=== PATIENT | female | born 1985 | race Caucasian/White ===

== ENCOUNTER 2018-01-12 00:06 | Observation (INO) | payer OTHER ==
[2018-01-12] MEDS ORDERED: NS 1,000 ML IV ONE (00:08)
--- NOTE | 2018-01-12 00:17 | EDPHY ---
H & P Time Seen by Provider: 01/12/18 00:20 HPI/ROS: HPI CHIEF COMPLAINT: Vaginal bleeding, HISTORY OF PRESENT ILLNESS: This patient is a 32-year-old female she is otherwise healthy with no significant medical history does not take any daily medications she presents emergency room with vaginal bleeding that suddenly started around 11 30 this evening. She is currently 11 weeks . She denies any abdominal pain chest pain or shortness of breath. Denies trauma. Denies contractions. She has not had ultrasound yet. Past Medical History: Beta thalassemia. Past Surgical History: Denies surgical history Social History: Denies drugs alcohol tobacco products. Family History: Noncontributory ROS REVIEW OF SYSTEMS: A comprehensive 10 point review of systems is otherwise negative aside from elements mentioned in the history of present illness. Exam Constitutional triage nursing summary reviewed, vital signs reviewed, awake/ alert. Eyes normal conjunctivae and sclera, EOMI, PERRLA. HENT normal inspection, atraumatic, moist mucus membranes, no epistaxis, neck supple/ no meningismus, no raccoon eyes. Respiratory clear to auscultation bilaterally, normal breath sounds, no respiratory distress, no wheezing. Cardiovascular rate normal, regular rhythm, no murmur, no edema, distal pulses normal. Gastrointestinal soft, non-tender, no rebound, no guarding, normal bowel sounds, no distension, no pulsatile mass. Genitourinary no CVA tenderness. Musculoskeletal no midline vertebral tenderness, full range of motion, no calf swelling, no tenderness of extremities, no meningismus, good pulses, neurovascularly intact. Skin pink, warm, & dry, no rash, skin atraumatic. Neurologic awake, alert and oriented x 3, AAOx3, moves all 4 extremities equally, motor intact, sensory intact, CN II-XII intact, normal cerebellar, normal vision, normal speech. Psychiatric normal mood/affect. Heme/Lymph/Immune no lymphadenopathy. Differential Diagnosis: Includes but is not limited to in a particular order, miscarriage, ectopic , threatened AB, AVM, fibroid Medical Decision Making: Plan for this patient that is 11 weeks with significant vaginal bleeding will status an IV, IV fluid bolus, check CBC, type and screen, ABO Rh, ultrasound of the pelvis less than 14 weeks and re-evaluate. Re-evaluation: 0128: Ultrasound results are pending. CBC reviewed with an H&H of 9. I did perform a pelvic exam at 1:20 a.m. 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 After removal of these clots she did have significant vaginal bleeding. Patient is blood type O-positive. 0213: After extensive discussion with the patient she would like to be admitted for observation given how much vaginal bleeding she is having. I think this is reasonable. Ultrasound shows a large subchorionic hemorrhage. This patient is currently actively miscarrying. 0214: Spoke with Dr. Ramirez who agrees to admit the patient. Source: Patient Constitutional: Initial Vital Signs Temperature (C) 36.7 C 01/12/18 00:15 Heart Rate 110 H 01/12/18 00:15 Respiratory Rate 18 01/12/18 00:15 Blood Pressure 136/82 H 01/12/18 00:15 O2 Sat (%) 100 01/12/18 00:15 O2 Delivery Mode Room Air Allergies/Adverse Reactions: eye drops Allergy (Uncoded 01/12/18 03:15) Home Medications: Medication Instructions Recorded Dha 1 tab PO DAILY 01/12/18 FOLIC ACID 1 tab PO DAILY 01/12/18 Multivitamin (*) 1 tab PO DAILY 01/12/18 Medical Decision Making - Diagnostics Imaging Results: Imaging Impressions Obstetrics Ultrasound 01/12/18 00:17 Impression: 1. Single viable intrauterine gestation with EGA by ultrasound of 12 weeks and by LMP of 11 weeks is detected above. 2. Estimated date of delivery is 08/03/2018 by LMP and 07/27/2018 by ultrasound. Size consistent with dates. 3. Large subchorionic hemorrhage along the posterior aspect of the gestational sac with some funneling of the upper cervix. The remaining lower 2.8 cm of cervix remains closed. 4. Blood products are also seen within the vagina. The study was performed as an emergency on-call case and discussed by telephone with Dr. Mark Perdomo at 0132 hrs. The final interpretation is concordant with the original communication. - Data Points Laboratory Results: Laboratory Results 01/12/18 00:45 01/12/18 00:45 Medications Given: Acetaminophen (Tylenol) 650 mg PO Q4HRS PRN PRN Reason: Pain, Mild/Fever, Can Take PO Stop: 07/11/18 09:33 Last Admin: 03/19/18 01:26 Dose: 650 mg Diphenoxylate HCl/Atropine (Lomotil) 1 - 2 tab PO Q6 PRN PRN Reason: Diarrhea/Loose Stools Stop: 07/11/18 22:59 Last Admin: 01/12/18 23:25 Dose: 1 tab Lactated Ringer's (Lr) 1,000 mls @ 125 mls/hr IV CONT ELIZABETH Stop: 07/11/18 05:59 Last Admin: 01/12/18 23:25 Dose: 1,000 mls Misoprostol (Cytotec) 600 mcg PO Q3 ELIZABETH Stop: 07/11/18 09:44 Last Admin: 01/13/18 01:30 Dose: Not Given Discontinued Medications Acetaminophen (Tylenol) 1,000 mg PO ONCE ONE Stop: 01/12/18 04:16 Last Admin: 01/12/18 04:20 Dose: 1,000 mg Sodium Chloride (Ns) 1,000 mls @ 0 mls/hr IV EDNOW ONE; Wide Open PRN Reason: Protocol Stop: 01/12/18 00:09 Last Admin: 01/12/18 00:51 Dose: 1,000 mls Misoprostol (Cytotec) 1,000 mcg PO ONCE ONE Stop: 01/12/18 04:21 Last Admin: 01/12/18 04:30 Dose: 1,000 mcg Departure - Departure Disposition: [facility] Acute Clinical Impression: Miscarriage Condition: Good
[2018-01-12 01:06] LABS: PLATELET COUNT 216 10^3/uL (150-400)
[2018-01-12] MEDS: LR 1,000 ML IV SCH ×3 (04:00→23:25)
[2018-01-12] MEDS ORDERED: ACETAMINOPHEN 500 MG TAB PO ONE (04:15)
[2018-01-12] MEDS ORDERED: MISOPROSTOL 200 MCG TAB ONE ×2 (04:18→06:56)
[2018-01-12] MEDS ORDERED: MISOPROSTOL 200 MCG TAB PO ONE (04:20)
[2018-01-12 04:23] LABS: PLATELET COUNT 197 10^3/uL (150-400)
--- NOTE | 2018-01-12 06:21 | GHP ---
[f rep st] PREOP HISTORY AND PHYSICAL DATE OF ADMISSION: 01/12/2018 HISTORY OF PRESENT ILLNESS: The patient is a 32-year-old G1 white female who presented to the emerge ncy room due to heavy vaginal bleeding at 12 weeks . The patient reports she has had an unc omplicated other than a small amount of postcoital bleeding at approximately 7 to 8 weeks; however, started having heavy vaginal bleeding approximately 11:30 on the 17. The patient was havi ng minimal discomfort. In the emergency room, an ultrasound was performed that showed of a viable in trauterine ; however, the sac was in the lower uterine segment with evidence of a large subc horionic posterior hemorrhage. There was normal fluid in the sac. The patient was having heavy acti ve bleeding with large clots in the emergency room. Initial hemoglobin and hematocrit were 9.1 and 2 7.2. The patient was hemodynamically stable and it was decided to admit the patient for observation during her miscarriage status due to the anemia. CARE: The patient has had a visit at [facility] approximately 2 weeks ago, at wh ich time they heard normal cardiac activity. She had not yet had an ultrasound with this [facility]. Has not had any laboratory done previous to tonight. PAST MEDICAL HISTORY: Beta thalassemia. PAST SURGICAL HISTORY: Gum graft, at which time she had significantly heavier bleeding than she was told was typical of that procedure. She has also had her wisdom teeth out that did not have any undu e bleeding. ALLERGIES: The patient is allergic to dilating eyedrops causing nausea and emesis and the patient payne d passed out. CURRENT MEDICATIONS: Only vitamins with DHA and [place] 3s. SOCIAL HISTORY: The patient denies smoking, has had no alcohol intake through the . She de nies any IV drug use. The patient does have a supportive partner with her. She is an active female, but has not done any intensely strenuous exercise in the last 1-2 days. REVIEW OF SYSTEMS: A comprehensive review of systems performed and the pertinent positives and negat rupal noted above. The patient reported mild indigestion after dinner tonight that was not unusual, b ut no nausea or vomiting. PAST SHOEMAKING FINISHER HISTORY: The patient reports that her menstrual cycles were monthly, lasting 5-7 days. The patient reports 2-3 days of extremely heavy flow where she is soaking large pads every hour. Only d escribes mild back discomfort with her periods. LABORATORY DATA: Lab tests done since admission reveal the above noted H and H and a repeat CBC show ed mild elevation of the white count up to 11.2 with hemoglobin 7.9 and hematocrit 23.2. Platelets w ere normal. Chemistry panel was performed upon admission and was normal with a creatinine of 0.4. T he patient's blood type is O positive. PHYSICAL EXAM: The patient is seen on labor and delivery and is resting comfortably. She is a well- developed, well-nourished, white female. After the patient had gotten up to the bathroom, she did payne ve a drop in blood pressure to 83/45. Otherwise, the blood pressures have ranged from the 100s to th e 120s over 60s to 70s. Heart rate is between the 80s and 100s. The patient's temperature was 38.8 and after 1 g of Tylenol had come down to 37.8. On exam, the patient's lungs are clear to auscultati on bilaterally. CARDIOVASCULAR: Regular rate and rhythm. Oxygenation is at 100% on room air. The patient has 1 L of oxygen near her, but states it is more for mental reassurance. ABDOMEN: Soft and nontender. Pelvic ultrasound is performed and there was minimal tissue noted up in the uterus. How ever, it appears the gestational sac has moved down into the vaginal area. Vaginal exam was performe d and clots removed vaginally with some tissue. No pole specifically identified. After the ti ssue was removed vaginally, the ultrasound is rechecked and it does appear that there might still be some retained tissue in the uterus. EXTREMITIES: Nontender and no edema. ASSESSMENT: Spontaneous loss with concern for abruption as the process was essentially madyson nless with heavy bleeding. No obvious etiology to explain an abruption. Incomplete at this point with still evidence of a small retained tissue. Blood type O positive. PLAN: The patient is given 1000 mcg of Cytotec to see if this will help her uterus expel the tissue. Due to the history of menorrhagia and heavier bleeding after the gum graft, we will check a von Ganesh lebrand's factor at the next time of a check of H and H in 4 hours. History of beta thalassemia with typical hematocrit between 28 and 32. Anemia at this point, after recent bleeding. /[id number]/MODL
--- NOTE | 2018-01-12 08:01 | SOAPPROG ---
SOAP Progress Note Assessment/Plan: Assessment: incomplete ab s/p loss of 12 wk IUP with concern for RPOCs stable hemodynamically fever after cytotec but don't think pt looks clinically septic anemia beta thal Plan: u/s reveals still evidence of tissue/clot in uterus - no further bld after cytotec 3+ hrs ago recheck CBC now and check VWF 01/12/18 07:58 01/12/18 08:00 Subjective: pt doing fine. has been up to bathroom and feels weak but not dizzy anymore. bld is minimal. urinating fine. felt warm with fever after cytotec Objective: Vital Signs Temp Pulse Resp BP Pulse Ox 38.8 C H 85 16 112/61 94 01/12/18 07:40 01/12/18 07:40 01/12/18 07:40 01/12/18 07:40 01/12/18 07:40 Laboratory Results 01/12/18 03:58 01/11/18 01/12/18 01/13/18 05:59 05:59 05:59 Intake Total 1200 Output Total 310 Balance 890 ultrasound - evidence of RPOCs/ clot in uterus Physical Exam - Physical Exam Abdomen: non-tender, soft Pelvic Exam: vaginal bleeding (light), other (now more tissue noted in vagina, palpable tissue/clot noted at inner os.) ICD10 Worksheet Patient Problems: Problems Problem Status Onset Miscarriage Acute
[2018-01-12 08:34] LABS: PLATELET COUNT 188 10^3/uL (150-400)
--- NOTE | 2018-01-12 09:28 | SOAPPROG ---
SOAP Progress Note Assessment/Plan: Assessment:32 G1 with a 12 week incomplete SAB - hemodynamically stable now, though had significant blood loss Prefers nonsurgical management at this time. Still appears to have a 3 cm thickness in the endometrial cavity of clot vs tissue Febrile but no focal symptoms, nontoxic, likely side effect of misoprostil. Anemia - stable and not clinically symptomatic any more Plan: Misoprostil 600mcg sublingual (most current mgmt recommendations per [email or web address]) q 3 hours Will continue to observe here in L&d Tylenol 650 q 4 hr Will reassess this afternoon - if bleeding becomes significant, will proceed with D&C If unable to pass remaining tissue, will also consider D&C Will repeat H/H if clinically significant bleeding. Pt and male partner agreeable with mutual plan of care. Iona Lauren MD, [facility] 01/12/18 09:23 01/12/18 09:31 Subjective: Pt doing well. Was not lightheaded or dizzy with last time up to the rest room. Shares anxiety about D&C and / or transfusion. Bleeding has significantly decreased, as has cramping. Objective: Vital Signs Temp Pulse Resp BP Pulse Ox 38.6 C H 92 16 106/58 L 96 01/12/18 08:49 01/12/18 08:49 01/12/18 08:49 01/12/18 08:49 01/12/18 08:49 Laboratory Results 01/12/18 08:10 01/11/18 01/12/18 01/13/18 05:59 05:59 05:59 Intake Total 1200 Output Total 310 Balance 890 gen - pleasant female, NAD abd - soft, NT, uterine fundus nontender ext - NT Abd US done - uterus with 3 cm endometrial thickness, heterogeneous, c/w clot or possible retained products of conception - Time Spent With Patient Time Spent With Patient: >20 min spent with patient - Pending Discharge Pending Discharge Within 24 Hours: Yes Pending Discharge Within 48 Hours: Yes Pending Discharge Date: 01/13/18 Pending Discharge Time: 11:00 ICD10 Worksheet Patient Problems: Problems Problem Status Onset Miscarriage Acute
[2018-01-12] MEDS: MISOPROSTOL 200 MCG TAB PO SCH ×5 (09:55→23:12)
[2018-01-12] MEDS: ACETAMINOPHEN 325 MG TAB PO PRN ×3 (09:57→21:43)
--- NOTE | 2018-01-12 17:43 | SOAPPROG ---
SOAP Progress Note Assessment/Plan: Assessment:32 G1 with a 12 week incomplete SAB - hemodynamically stable now, though had significant blood loss Prefers nonsurgical management at this time. Still appears to have a 3 cm thickness in the endometrial cavity of clot vs tissue Febrile but no focal symptoms, nontoxic, likely side effect of misoprostil. Anemia - stable and not clinically symptomatic any more Plan: Misoprostil 600mcg sublingual (most current mgmt recommendations per [email or web address]) q 3 hours Will continue to observe here in L&d Tylenol 650 q 4 hr Will reassess this afternoon - if bleeding becomes significant, will proceed with D&C If unable to pass remaining tissue, will also consider D&C Will repeat H/H if clinically significant bleeding. Pt and male partner agreeable with mutual plan of care. Iona Lauren MD, [facility] 01/12/18 09:23 01/12/18 09:31 01/12/18 17:43 Assessment: 32 G1 with 12 wk incomplete SAB, undergoing misoprostil to help complete it, in setting of anemia from acute blood loss this morning. Still prefers non-surgical management. Endometrial thickness has decreased from 3.1 to 2.7cm No longer febrile but still has slightly elevated tempurature, but no focal symptoms - likely side effect of misoprostil. Anemia - significant, but clinically not symptomatic Plan: Will continue with misoprostil 600mcg q 3 hr Will allow to eat/ have reg diet for dinner and resume NPO status at midnight in case need to proceed with D&C in the morning Discussed option of going home to complete SAB at home. Since she is so anemic , has had a fever, and still has clot/tissue within the uterus - reasonable to observe overnight. May need to reconsider D&C in AM - so will make NPO after midnight. Repeat CBC in AM Iona Lauren MD, [facility] 01/12/18 17:55 Subjective: Pt is resting comfortably. Is very fatigued. Is feeling some abdominal cramping. Passed some blood and tissue in the past couple hours. Objective: Vital Signs Temp Pulse Resp BP Pulse Ox 38.0 C 83 14 98/56 L 96 01/12/18 16:29 01/12/18 16:29 03/18/18 16:29 01/12/18 16:29 01/12/18 16:29 Laboratory Results 01/12/18 08:10 01/11/18 01/12/18 01/13/18 05:59 05:59 05:59 Intake Total 1200 Output Total 310 Balance 890 Gen - pleasant, NAD abd - soft, NT/ND, fundus NT 10 wk size Abd US done - Uterus with a heterogeneous stripe - max thickness 2.68 cm (was 3.14cm this morning) ext - calves NT - Time Spent With Patient Time Spent With Patient: 25 min spent - Pending Discharge Pending Discharge Within 24 Hours: Yes Pending Discharge Within 48 Hours: Yes Pending Discharge Date: 01/13/18 Pending Discharge Time: 11:00 ICD10 Worksheet Patient Problems: Problems Problem Status Onset Miscarriage Acute
[2018-01-12] MEDS ORDERED: DIPHENOXYLATE/ATROPINE LOMOTIL 1 TAB PO PRN (23:00)
[2018-01-13] MEDS: ACETAMINOPHEN 325 MG TAB PO PRN ×2 (01:26→14:55)
[2018-01-13] MEDS: MISOPROSTOL 200 MCG TAB PO SCH ×3 (01:30→12:34)
[2018-01-13 06:17] LABS: PLATELET COUNT 171 10^3/uL (150-400)
--- NOTE | 2018-01-13 07:19 | SOAPPROG ---
SOAP Progress Note Assessment/Plan: Assessment:32 G1 with a 12 week incomplete SAB - hemodynamically stable now, though had significant blood loss Prefers nonsurgical management at this time. Still appears to have a 3 cm thickness in the endometrial cavity of clot vs tissue Febrile but no focal symptoms, nontoxic, likely side effect of misoprostil. Anemia - stable and not clinically symptomatic any more Plan: Misoprostil 600mcg sublingual (most current mgmt recommendations per [email or web address]) q 3 hours Will continue to observe here in L&d Tylenol 650 q 4 hr Will reassess this afternoon - if bleeding becomes significant, will proceed with D&C If unable to pass remaining tissue, will also consider D&C Will repeat H/H if clinically significant bleeding. Pt and male partner agreeable with mutual plan of care. Iona Lauren MD, [facility] 01/12/18 09:23 01/12/18 09:31 01/12/18 17:43 Assessment: 32 G1 with 12 wk incomplete SAB, undergoing misoprostil to help complete it, in setting of anemia from acute blood loss this morning. Still prefers non-surgical management. Endometrial thickness has decreased from 3.1 to 2.7cm No longer febrile but still has slightly elevated tempurature, but no focal symptoms - likely side effect of misoprostil. Anemia - significant, but clinically not symptomatic Plan: Will continue with misoprostil 600mcg q 3 hr Will allow to eat/ have reg diet for dinner and resume NPO status at midnight in case need to proceed with D&C in the morning Discussed option of going home to complete SAB at home. Since she is so anemic , has had a fever, and still has clot/tissue within the uterus - reasonable to observe overnight. May need to reconsider D&C in AM - so will make NPO after midnight. Repeat CBC in AM Iona Lauren MD, [facility] 01/12/18 17:55 01/13/18 07:30 A:32 G1 with 12 wk incomplete SAB. Declined misoprostil starting at midnight due to diarrhea. Reviewed lower H/H with pt. Agrees to proceed with D&C this morning. Von Willebrand pending. P: Reviewed B/R/A of D&C. Dr. Perez will obtain written informed consent and will proceed with suction D&C when OR available. T&S drawn this morning. Will T&C now. Will make sure that Bakri intrauterine balloon is available in case of bleeding. Subjective: Pt is doing well, is fatigued. Is having some mild cramping and minimal bleeding. Objective: Vital Signs Temp Pulse Resp BP Pulse Ox 36.2 C 74 18 89/50 L 98 01/13/18 06:00 01/13/18 06:00 01/13/18 06:00 01/13/18 06:00 01/13/18 06:00 Laboratory Results 01/13/18 06:00 01/12/18 01/13/18 01/14/18 05:59 05:59 05:59 Intake Total 1200 Output Total 310 Balance 890 gen - pleasant female, NAD abd - soft, NT, fundus 10 wk size and NT ext - no calf tenderness abd US done - uterus still with heterogeneous material with 2.46cm endometrial thickness - Time Spent With Patient Time Spent With Patient: 15 min ICD10 Worksheet Patient Problems: Problems Problem Status Onset Anemia Acute Miscarriage Acute - ICD10 Problem Qualifiers (1) Anemia
--- NOTE | 2018-01-13 08:35 | PDHPUP ---
History & Physical Update H&P update statement: This history and physical update is based on an assessment of the patient which was completed after admission or registration (within 24 hours), but prior to the surgery/procedure. H&P update: no change in patient's condition since H&P completed H&P changes: Met with Roxanna and her partner this morning. Reviewed her course thus far and her most recent H/H showing even further drop in Hgb to now below 7. She is still bleeding although not heavily, and not very symptomatic currently. Discussed that I would agree that D&C is probably the wisest choice for her to avoid even further drop in her blood counts and the need for blood transfusion. - Doxycycline 100mg IV x 1 preop, then 200mg PO in PACU. - Will plan for H/H at least 2 hours postop to allow for equilibration with blood loss from procedure and then think about discharge home later today. - Will need PO iron supplements at least. - Risks discussed, consents signed in person.
[2018-01-13] MEDS ORDERED: DOXYCYCLINE INJ 100 MG in NS 250 ML IV ONE ×2 (09:00→09:30)
--- NOTE | 2018-01-13 10:10 | PDANEPAE ---
ANE History of Present Illness 32 year old female with PMHx of of beta thallasemia at 12weeks gestational age presented to ED with diffuse vaginal bleeding. Patient to OR for D&C. ANE Past Medical History - Cardiovascular History Hx Hypertension: No Hx Arrhythmias: No Hx Chest Pain: No Hx Coronary Artery / Peripheral Vascular Disease: No Hx CHF / Valvular Disease: No Hx Palpitations: No - Pulmonary History Hx COPD: No Hx Asthma/Reactive Airway Disease: No Hx Recent Upper Respiratory Infection: No Hx Oxygen in Use at Home: No Hx Sleep Apnea: No Sleep Apnea Screening Result - Last Documented: Negative - Endocrine History Hx Diabetes: No Hypothyroid: No Hyperthyroid: No Obesity: no - Renal History Hx Renal Disorders: No - Liver History Hx Hepatic Disorders: No - Neurological & Psychiatric Hx Hx Neurological and Psychiatric Disorders: Yes Neurological / Psychiatric History Comment: History of seizure disorder as a child. Then one "event" in 2014 that may or may not have been a seizure. - GI History GERD: no Hx Gastrointestinal Disorders: No - Other Health History Other Health History: Beta thallasemia. Anemia - Hgb < 7. Patient typed and cross-matched with 2 units PBRCs available prior to D&C. - Surgical History Prior Surgeries: Gum line graft - significant bleeding with this procedure. ANE Review of Systems Review of systems is: negative Review of Systems: - Exercise capacity Exercise capacity: >=4 METS ANE Patient History - Allergies Allergies/Adverse Reactions: eye drops Allergy (Uncoded 01/12/18 03:15) - Home Medications Home medications: home medication list seen and reviewed Home Medications: Dha 1 tab PO DAILY 01/12/18 [Last Taken 01/11/18] FOLIC ACID 1 tab PO DAILY 01/12/18 [Last Taken 01/11/18] Multivitamin (*) 1 tab PO DAILY 01/12/18 [Last Taken 01/11/18] - NPO status NPO Status: no food or drink >8 hours NPO Since - Liquids (Date): 01/12/18 NPO Since - Liquids (Time): 23:30 NPO Since - Solids (Date): 01/12/18 NPO Since - Solids (Time): 23:30 - Anes Hx Anes Hx: no prior problems - Smoking Hx Smoking Status: Never smoked Marijuana use: No - Alcohol Use Alcohol Use: None - Family Anes Hx Family Anes Hx: neg - N/A ANE Labs/Vital Signs - Labs Result Diagrams: 01/13/18 06:00 01/12/18 00:45 - Vital Signs Vital Signs: reviewed preoperatively; see RN documention for details Blood Pressure: 89/50 Heart Rate: 76 Respiratory Rate: 18 O2 Sat (%): 98 Height: 167.64 cm Weight: 68.039 kg ANE Physical Exam - Airway Neck exam: FROM Mallampati Score: Class 2 Mouth exam: normal dental/mouth exam - Pulmonary Pulmonary: no respiratory distress - Cardiovascular Cardiovascular: regular rate and rhythym - ASA Status ASA Status: II ANE Anesthesia Plan Anesthesia Plan: GA w LMA (General anesthesia only as back-up plan.), MAC Total IV Anesthesia: Yes
[2018-01-13] MEDS ORDERED: PROPOFOL/EMULSION 500 MG/50 ML BOTTLE IV ONE ×2 (10:34→11:29)
[2018-01-13] MEDS ORDERED: MIDAZOLAM 2 MG/2 ML VIAL ONE (10:34)
[2018-01-13] MEDS ORDERED: DEXAMETHASONE 4 MG/ML VIAL ONE (10:37)
[2018-01-13] MEDS ORDERED: ONDANSETRON 4 MG/2 ML VIAL ONE (10:37)
[2018-01-13] MEDS ORDERED: BUPIVACAINE 0.25% 30 ML SDV ONE ×2 (10:50)
[2018-01-13] MEDS ORDERED: EPINEPHrine 1 MG/ML INJ ONE (10:51)
[2018-01-13] MEDS ORDERED: DOXYCYCLINE HYCLATE 100 MG CAP/TAB PO ONE (11:00)
[2018-01-13] MEDS ORDERED: ONDANSETRON 4 MG/2 ML VIAL IVP PRN (11:19)
[2018-01-13] MEDS ORDERED: NALOXONE HCL 0.4 MG/ML INJ IVP PRN (11:19)
[2018-01-13] MEDS ORDERED: PHENYLEPHRINE HCL 100 MCG/ML SYR IVP PRN (11:19)
[2018-01-13] MEDS ORDERED: ACETAMINOPHEN 500 MG TAB PO PRN (11:19)
[2018-01-13] MEDS ORDERED: fentaNYL 100 MCG/2 ML INJ IVP PRN (11:19)
[2018-01-13] MEDS ORDERED: PROMETHAZINE HCL 25 MG/ML INJ IVP PRN (11:19)
[2018-01-13] MEDS ORDERED: HYDROCODONE/APAP 5/325 TAB PO PRN (11:19)
[2018-01-13] MEDS ORDERED: LR 500 ML IV PRN (11:19)
[2018-01-13 13:20] VITALS: BP 102/63
--- NOTE | 2018-01-13 16:01 | POSTANESTH ---
Post Anesthetic Evaluation Cardiovascular Status: Normal, Stable, Similar to Pre-Op Cond Respiratory Status: Normal, Stable, Similar to Pre-op Cond. Level of Consciousness/Mental Status: Can Participate in Eval, Alert and Oriented Pain Control: Adequate, Prn Tx Ordered Nausea/Vomiting Control: Adequate, Prn Tx Ordered Complications Possibly Related to Anesthesia: None Noted
--- NOTE | 2018-01-18 16:30 | SUROPNOTE ---
[facility] Operative Report - Surgery Date of Operation: 01/13/18 Surgeon: Win Perez Generator Assembler: None Anesthesia: IV Sedation Pre-op Diagnosis: Incomplete AB, 12 wks EGA, acute blood loss anemia Post-op Diagnosis: Same Procedure: Suction D&C, under US-guidance Findings: Substantial POC's still within the cavity on US prior to procedure Inf/Abcess present in the surg proc area at time of surgery?: No EBL: 50-100 Complications: None Specimen(s): Products of conception Technique: Technique: The patient was taken to the OR where she was induced under MAC anesthesia. She was prepped and draped in the normal sterile fashion in low lithotomy position. An EUA was performed. She had voided just prior to OR so she was not catheterized. A medium graves speculum was placed and the cervix was grasped with a single tooth tenaculum. A paracervical block was then placed with injection of 4ml of local at the 4 and 8 oclock positions at the cervicovaginal junction. The cervix was gently dilated to 8 mm with Leydi dilators. An 8mm curved plastic suction curette was introduced and suction used to remove the POC. Several passes were made with the suction curette. Dilated further to allow 10mm curette as quite a bit of material in the cavity. I did have portable US in the OR and I performed transabdominal US myself during the case which confirmed a uniformly thin stripe throughout the cavity with no further tissue present. The tenaculum was removed and the tenaculum sites were hemostatic. The speculum was removed from the vagina. The patient tolerated the procedure well. All sponge, lap, needle, and instrument counts were correct x2. The patient was taken to the PACU in stable condition. I was present and scrubbed for the entire procedure.
--- NOTE | 2018-02-03 19:06 | PDDCSUM ---
Discharge Summary Discharge Summary: DATE OF ADMISSION: 01/12/2018 HISTORY OF PRESENT ILLNESS: The patient is a 32-year-old G1 white female who presented to the emergency room due to heavy vaginal bleeding at 12 weeks . The patient reports she has had an uncomplicated other than a small amount of postcoital bleeding at approximately 7 to 8 weeks; however, started having heavy vaginal bleeding approximately 11:30 on the 17. The patient was having minimal discomfort. In the emergency room, an ultrasound was performed that showed of a viable intrauterine ; however, the sac was in the lower uterine segment with evidence of a large subchorionic posterior hemorrhage. There was normal fluid in the sac. The patient was having heavy active bleeding with large clots in the emergency room. Initial hemoglobin and hematocrit were 9.1 and 27.2. The patient was hemodynamically stable and it was decided to admit the patient for observation during her miscarriage status due to the anemia. PLAN: The patient is given 1000 mcg of Cytotec to see if this will help her uterus expel the tissue. Due to the history of menorrhagia and heavier bleeding after the gum graft, we will check a von Willebrand's factor at the next time of a check of H and H in 4 hours. History of beta thalassemia with typical hematocrit between 28 and 32. Anemia at this point, after recent bleeding. -- Recieved multiple doses of cytotec over her first hospital night, we no full expulsion of tissue. I met with her AM of HD2: H&P changes next morning: Met with Roxanna and her partner this morning. Reviewed her course thus far and her most recent H/H showing even further drop in Hgb to now below 7. She is still bleeding although not heavily, and not very symptomatic currently. Discussed that I would agree that D&C is probably the wisest choice for her to avoid even further drop in her blood counts and the need for blood transfusion. - Doxycycline 100mg IV x 1 preop, then 200mg PO in PACU. - Will plan for H/H at least 2 hours postop to allow for equilibration with blood loss from procedure and then think about discharge home later today. - Will need PO iron supplements at least. - Risks discussed, consents signed in person. -- Date: 01/18/18 16:30 Initialization Date: 01/18/18 16:30 [facility] Operative Report - Surgery Date of Operation: 01/13/18 Surgeon: Win Perez Salt Lifter: None Anesthesia: IV Sedation Pre-op Diagnosis: Incomplete AB, 12 wks EGA, acute blood loss anemia Post-op Diagnosis: Same Procedure: Suction D&C, under US-guidance Findings: Substantial POC's still within the cavity on US prior to procedure Inf/Abcess present in the surg proc area at time of surgery?: No EBL: 50-100 Complications: None Specimen(s): Products of conception Technique: Technique: The patient was taken to the OR where she was induced under MAC anesthesia. She was prepped and draped in the normal sterile fashion in low lithotomy position. An EUA was performed. She had voided just prior to OR so she was not catheterized. A medium graves speculum was placed and the cervix was grasped with a single tooth tenaculum. A paracervical block was then placed with injection of 4ml of local at the 4 and 8 oclock positions at the cervicovaginal junction. The cervix was gently dilated to 8 mm with Leydi dilators. An 8mm curved plastic suction curette was introduced and suction used to remove the POC. Several passes were made with the suction curette. Dilated further to allow 10mm curette as quite a bit of material in the cavity. I did have portable US in the OR and I performed transabdominal US myself during the case which confirmed a uniformly thin stripe throughout the cavity with no further tissue present. The tenaculum was removed and the tenaculum sites were hemostatic. The speculum was removed from the vagina. The patient tolerated the procedure well. All sponge, lap, needle, and instrument counts were correct x2. The patient was taken to the PACU in stable condition. I was present and scrubbed for the entire procedure. -- Pt discharged home from PACU in excellent condition. Will f/u with our office 2 wks Postop.
== END 2018-01-13 15:59 | disposition home or self-care (01) ==
LOC: FLD 03:00
PROVIDERS: ADMIT Obstetrics & Gynecology; ATTEND Obstetrics & Gynecology
PROC: 10D17ZZ Extraction of Products of Conception, Retained, Via Natural or Artificial Opening (ICD-10-PCS; principal; 2018-01-12)
DX: O03.4 Incomplete spontaneous abortion without complication (principal); D56.1 Beta thalassemia; Z3A.12 12 weeks gestation of pregnancy
CPT/HCPCS: 59200; 59812; 76801; 76815; 99285; G0378; 85245-90; J0171; J1100; J2250; J2405; J2704

== ENCOUNTER → 2018-08-12 | Outpatient (CLI) | payer OTHER | LOC: FIMAGING 09:05 | PROVIDERS: ATTEND Advanced Practice Midwife | DX: O09.891 Supervision of other high risk pregnancies, first trimester (principal); Z3A.14 14 weeks gestation of pregnancy ==

== ENCOUNTER → 2018-09-25 | Outpatient (CLI) | payer OTHER | LOC: FIMAGING 08:19 | PROVIDERS: ATTEND Advanced Practice Midwife | DX: O99.019 Anemia complicating pregnancy, unspecified trimester (principal); Z3A.19 19 weeks gestation of pregnancy ==

== ENCOUNTER → 2019-03-30 | Outpatient (CLI) | payer OTHER | LOC: EMCIMAGING 15:04 ==